=== PATIENT | male | born 1995 | race Two or more races ===

== ENCOUNTER 2020-01-27 20:02 | Emergency (ER) | payer BC, OTHER ==
[~2020-01-27] VITALS: Ht 167.6 cm; Wt 73.0 kg
--- NOTE | 2020-01-27 20:28 | NUR ---
PT AAOX4. AMBUALTORY WITH STEADY GAIT. BIBS. C/O FEVER AND HEADAHCE X2 DAYS. PT DENIES HAVING SORE THROAT OR SOB. SAT 99% ON ROOM AIR. MD AT BEDSIDE FOR EVAL.
--- NOTE | 2020-01-27 20:35 | NUR ---
Patient discharged to home in stable condition. Written and verbal after care instructions given. Patient verbalizes understanding of instruction.Pt ambulatory with a steady gait
[2020-01-27 20:36] VITALS: BP 128/81
== END 2020-01-27 20:36 | disposition home or self-care (01) ==
LOC: ER 20:07
DX: R50.9 Fever, unspecified (principal); R68.89 Other general symptoms and signs; E78.5 Hyperlipidemia, unspecified; F17.200 Nicotine dependence, unspecified, uncomplicated